=== PATIENT | female | born 1965 | race Caucasian/White ===

== ENCOUNTER 2017-12-19 11:21 | Emergency (ER) | payer BC ==
--- NOTE | 2017-12-19 11:29 | ER Report ---
History and Physical Time Seen By MD: 11:24 Hx. of Stated Complaint: PATIENT STARTED HAVING A HEADACHE ON THURSDAY. SHE ALSO REPORTS THAT SHE WAS NAUSEATED AND HER TONGUE WAS NUMB HPI/ROS CHIEF COMPLAINT: Left Facial Weakness HISTORY OF PRESENT ILLNESS: Patient is a 52-year-old female here with 3 day history of left facial weakness and intermittent coinciding headache. Patient does have a history of migraines however she notes that her current headaches are seemingly different. Her current headaches are located in the left parietal region. She denies fevers, chills, chest pain, shortness of breath, abdominal pain, nausea, vomiting, upper or lower extremity weakness or sensation deficits. Facial weakness involves the upper middle and lower facial nerve distributions. REVIEW OF SYSTEMS: Constitutional: No fever, no chills. Head: + left parietal headache/ Left facial weakness of upper/middle/lower facial nerve distributions Eyes: No discharge. ENT: No sore throat. Cardiovascular: No chest pain, no palpitations. Respiratory: No cough, no shortness of breath. Gastrointestinal: No abdominal pain, no vomiting. Genitourinary: No hematuria. Musculoskeletal: No back pain. Skin: No rashes. Neurological: + headache (intermittent), + left facial paresis Allergies: Coded Allergies: Penicillins (Verified Allergy, Intermediate, 12/19/17) Home Meds Active Scripts Prednisone (PREDNISONE) 20 Mg Tablet, 60 MG PO QDAY for 7 Days, #21 TAB Please take three tabs daily for seven days Prov:CARLTON KILPATRICK DO 12/19/17 Valacyclovir Hcl (VALACYCLOVIR) 1,000 Mg Tablet, 1000 MG PO TID for 7 Days, #21 TAB Prov:CARLTON KILPATRICK DO 12/19/17 Reported Medications Ibuprofen (IBUPROFEN) 800 Mg Tablet, 1 TAB PO Q8H, TAB 12/19/17 Aspirin (ASPIRIN) 325 Mg Tablet, 325 MG PO Q4-6H, TAB 12/19/17 Constitutional Vital Sign - Last 24 Hours 12/19/17 11:24 Temp 98.3 Pulse 111 Resp 20 B/P (MAP) 148/103 Pulse Ox 96 O2 Delivery Room Air Physical Exam General Appearance: The patient is alert, has no immediate need for airway protection and no signs of toxicity. Eyes: Pupils equal and round no pallor or injection, + left sided eyelid incomplete closure due to muscle weakness ENT, Mouth: Mucous membranes are moist. Respiratory: There are no retractions, lungs are clear to auscultation. Cardiovascular: Regular rate and rhythm. Gastrointestinal: Abdomen is soft and non tender, no masses, bowel sounds normal. Neurological: + left sided facial weakness of left upper/middle/lower facial nerve distributions, No upper or lower extremity neural deficits. Skin: Warm and dry, no rashes. Musculoskeletal: Neck is supple non tender. Extremities are nontender, nonswollen and have full range of motion. DIFFERENTIAL DIAGNOSIS: After history and physical exam differential diagnosis was considered for [place] Palsy (viral, idiopathic), CVA, TIA, complex migraine, intracranial bleed Medical Decision Making EKG/Imaging Imaging HEAD W/O CONTRAST EXAMINATION: CT head/brain without contrast HISTORY: Headache TECHNIQUE: Contiguous axial images were obtained from the skull base to the vertex without intravenous contrast. One of the following dose optimization techniques was utilized in the performance of this exam: Automated exposure control; adjustment of the mA and/ or kV according to the patient's size; or use of an iterative reconstruction technique. Specific details can be referenced in the facility's radiology CT exam operational policy. COMPARISON STUDIES: None FINDINGS: Ventricles/sulci/fissures: Negative Masses/hemorrhage/midline shift: Negative White matter: Negative Gerard-white differentiation: Negative Extra-axial spaces: Negative Dural venous sinuses/arterial structures: Negative Skull base/calvarium: Negative Visualized mastoid air cells/paranasal sinuses: Negative IMPRESSION: 1. Negative CT scan of the head for acute intracranial pathology. ED Course/Re-evaluation ED Course Patient is a 52-year-old female here with complaints of 3 day history of left facial paresis and coinciding left parietal headache which has been intermittent. Patient does have a history of migraines however she notes that her current headaches are different in quality and distribution as compared to her typical migraines. Facial paresis is present on the upper, middle, lower facial nerve distributions making Oden's palsy a more likely etiology. The patient denies focal neurological deficits in the upper or lower extremities. CT scan of the head was performed to rule out intracranial bleed as the patient had a coinciding headache. No intracranial process was identified on imaging. Due to the patient's right great paresis, she was placed on prednisone and valacyclovir seven-day course with concurrent left eye precautions. I explained the findings with the patient and she voiced understanding of treatment course. Decision to Disposition Date: December 19, 2017 Decision to Disposition Time: 12:28 Depart Departure Latest Vital Signs Vital Signs Date Time Temp Pulse Resp B/P (MAP) Pulse Ox O2 Delivery O2 Flow Rate FiO2 12/19/17 11:24 98.3 111 20 148/103 96 Room Air Impression: Primary Impression: Oden palsy New Scripts Prednisone (PREDNISONE) 20 Mg Tablet 60 MG PO QDAY for 7 Days, #21 TAB Please take three tabs daily for seven days Prov: CARLTON KILPATRICK DO 12/19/17 Valacyclovir Hcl (VALACYCLOVIR) 1,000 Mg Tablet 1000 MG PO TID for 7 Days, #21 TAB Prov: CARLTON KILPATRICK DO 12/19/17 Patient Instructions: [place] Palsy (ED) Additional Instructions: Please take 3 (20mg tablets) of Prednisone daily for 7 days. Please take valacyclovir 1000 mg 3 times a day for 7 days. Please use eye patch for left eye protection and use moisturizing drops to maintain hydration. Please follow up with her family doctor in one week. Please return promptly if you develop worsening headache, fevers, muscle weakness of the arms or legs, worsening vision or difficulty swallowing. CARLTON KILPATRICK DO December 19, 2017 11:29
[2017-12-19] MEDS ORDERED: IBUP800T37 PO (11:34)
[2017-12-19] MEDS ORDERED: ASPI-757 PO (11:34)
[2017-12-19] MEDS ORDERED: predniSONE 20 MG TAB PO ONE (11:40)
[2017-12-19] MEDS ORDERED: valACYclovir HCL 500 MG TAB PO ONE (11:50)
[2017-12-19] MEDS ORDERED: VALA100059 PO (12:21)
[2017-12-19] MEDS ORDERED: PRED20TA6 PO ×2 (12:21→12:24)
--- NOTE | 2017-12-19 12:24 | RADIOLOGY IMAGING REPORT ---
FACILITY: [facility] - [place] PATIENT NAME: Yuko Caballero : 1965 MR: [id number] V: [id number] EXAM DATE: ORDERING PHYSICIAN: CARLTON KILPATRICK TECHNOLOGIST: Location: [facility] - [place], [place] Patient: Yuko Caballero : 1965 Visit/Account:[id number] Date of Sevice: 12/19/2017 HEAD W/O CONTRAST EXAMINATION: CT head/brain without contrast HISTORY: Headache TECHNIQUE: Contiguous axial images were obtained from the skull base to the vertex without intravenou s contrast. One of the following dose optimization techniques was utilized in the performance of this exam: Autom ated exposure control; adjustment of the mA and/or kV according to the patient's size; or use of an i terative reconstruction technique. Specific details can be referenced in the facility's radiology C T exam operational policy. COMPARISON STUDIES: None FINDINGS: Ventricles/sulci/fissures: Negative Masses/hemorrhage/midline shift: Negative White matter: Negative Gerard-white differentiation: Negative Extra-axial spaces: Negative Dural venous sinuses/arterial structures: Negative Skull base/calvarium: Negative Visualized mastoid air cells/paranasal sinuses: Negative IMPRESSION: 1. Negative CT scan of the head for acute intracranial pathology. Report Dictated By: Satish Gtz MD at 12/19/2017 12:15 PM Report E-Signed By: Satish Gtz MD at 12/19/2017 12:20 PM WSN:[id number]
[2017-12-19 12:30] VITALS: BP 123/78
== END 2017-12-19 12:43 | disposition home or self-care (01) ==
LOC: ER 11:29
DX: G51.0 Bell's palsy (principal)
CPT/HCPCS: 70450; 99284; J7512